=== PATIENT | female | born 1985 | race Caucasian/White ===

== ENCOUNTER 2017-11-01 08:39 | Inpatient (IN) | payer OTHER ==
[~2017-11-01] VITALS: Ht 162.6 cm; Wt 79.4 kg
[~2017-11-01 08:39] MED LIST: IBUPROFEN800 MG PO; PRENATAL1 TA2 PO; ZOFRAN4 M2 PO
--- NOTE | 2017-11-01 09:57 | History & Physical ---
General Information and HPI MD Statement: I have seen and personally examined RACHEL MCKEON and documented this H&P. The patient is a 32 year old female at [] weeks and [] days gestation who presented with a chief complaint of []. Source of Information: patient, old records Exam Limitations: no limitations History of Present Illness: The patient is a 32 year old at 41 weeks and 3 days gestation who presented with a chief complaint of IOL for PEDC. Pt c/o irreg ctx since 4 am. No LOF / vb / +FM. 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 Last TFT's wnl. 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 No Contractions: irreg Infant #1 - FHR Baseline: 120 Category: 1 Estimated Weight: 3800 Presentation: vtx Patient for Induction? Yes Alvarado Score Alvarado Score Response Value Cervix Position: posterior 0 Cervix Consistency: soft 2 Cervix Effacement: 30-50% 1 Cervix Dilation: 3-4 cm 2 Cervix Station: -2 1 Total 6 Physical Exam: nad cta rrr abd soft nt gravid ext nt tr b/l le ed Labs Blood Type & Rh: AB pos Antibody Screen: neg Hct/Hgb & Platelets #1: 12.4 / 39.2, 247 Hct/Hgb & Platelets #2: 11.1 / 35.5, 234 Rubella: imm VDRL #1: neg VDRL #2: neg HbsAg: neg HIV #1: neg HIV #2 neg 1 Hr P Group B Strep: neg Initial Ultrasound: 05/04/17 siup 15+4 Anatomy Ultrasound: 06/08/17 20+3 nl montse, post fundal plac Ultrasound for EFW: 09/29/17 36+5 5#12 Genetic Testing: cffdna wnl XY Last 24 Hrs of Labs/Gerson: Laboratory Tests 11/01/17 0910: CBC w Diff Pending, WBC Pending, RBC Pending, Hgb Pending, Hct Pending, MCV Pending, MCH Pending, MCHC Pending, RDW Pending, Plt Count Pending, MPV Pending, Urine Color Pending, Urine Clarity Pending, Urine pH Pending, Ur Specific [place] Pending, Urine Protein Pending, Urine Ketones Pending, Urine Nitrite Pending, Urine Bilirubin Pending, Urine Urobilinogen Pending, Ur Leukocyte Esterase Pending, Ur Microscopic Pending, Urine Hemoglobin Pending, Urine Glucose Pending Assessment/Plan Assessment/Plan: 32yo P2 @ 41+3 for PEDC IOL, GBS neg, and maternal status reassuring -Admit -pitocin -monitoring -ANSVD As Ranked By This Provider Problem List: 1. Core Measures Venous Thromboembolism VTE Risk Factors / No Mechanical VTE Prophylaxis d/t Early Ambulation No VTE Pharm Prophylaxis d/t LowRisk-No Interven Req'd Attending MD Review Statement Attending Statement Attending MD Statement: examined this patient, discussed with family, reviewed EMR data (avail), discussed w/nursing
[2017-11-01 11:30] LABS: ABSOLUTE BASOPHIL COUNT 0 /CUMM (0.0-0.2); ABSOLUTE EOSINOPHIL COUNT 0.1 /CUMM (0.0-0.7); ABSOLUTE LYMPH COUNT 1.5 /CUMM (1.2-3.4); ABSOLUTE MONOCYTE COUNT 0.5 /CUMM (0.10-0.60); BASOPHIL % 0.5 % (0.0-2.0); EOSINOPHIL % 1.2 % (0-5); HEMATOCRIT 36.1 % (37-47); MEAN CORPUSCULAR HGB 29.8 PG (27.0-31.0); MEAN CORPUSCULAR HGB CONC 33.7 G/DL (33.0-37.0); MEAN CORPUSCULAR VOLUME 88.3 FL (81.0-99.0); MEAN PLATELET VOLUME 7.4 FL (7.4-10.4); PLATELET COUNT 287 /CUMM (130-400); RBC DISTRIBUTION WIDTH 14.1 % (11.5-14.5); RED BLOOD CELL CT 4.09 /CUMM (4.20-5.40); WHITE BLOOD CELL COUNT 9.1 /CUMM (4.8-10.8)
--- NOTE | 2017-11-01 13:21 | PN- OBGYN ---
Surgical Brief Attending Note Brief Attending Note: pt comfortable w/ epidural afeb, v/ss fht 120s moderate variability +acc no dec toco q 2 - 3 pit@5mu sve 7/100/-1, arom clr a/p p2 @ 41+wks pedc iol, on pit, and maternal status reassuring cont current mgmt ansvd
--- NOTE | 2017-11-01 15:29 | Labor & Delivery Summary ---
Delivery Summary Vaginal Delivery: Vaginal: spontaneous Episiotomy/Lacerations: Type: 2nd deg Repair: 3-0 david Anesthesia: epidural Placenta: Placenta: spontanteous, normal, 3 vessel Anesthesia: block Cord PH Value: pending Baby's Weight: 3760 Apgars - 1 Min: 9 Apgars - 5 Min: 9 Additional Comments: Pt FD / +3 and pushing w/ epidural. Controlled of live male, apg 9/9, wt 8# 3. Head del from [place]Y. Spontaneous cry. Body delivered w/o difficulty to mom's chest. Mouth and nose bulb suctioned. Cord clamped and cut. 2nd deg lac repaired usual fashion 3-0 david. 3vc plac del after 35 min spont intact. Fundus contracted well. EBL 300cc. Pt tolerated well.
[2017-11-02 01:08] VITALS: BP 118/68
[2017-11-02 09:35] LABS: ABSOLUTE BASOPHIL COUNT 0 /CUMM (0.0-0.2); ABSOLUTE EOSINOPHIL COUNT 0.1 /CUMM (0.0-0.7); ABSOLUTE GRANULOCYTE CT 7.4 /CUMM (1.4-6.5); ABSOLUTE LYMPH COUNT 1.6 /CUMM (1.2-3.4); ABSOLUTE MONOCYTE COUNT 0.4 /CUMM (0.10-0.60); BASOPHIL % 0.4 % (0.0-2.0); EOSINOPHIL % 1.2 % (0-5); GRANULOCYTE % 77.2 % (42.2-75.2); HEMATOCRIT 34.9 % (37-47); MEAN CORPUSCULAR HGB 29.5 PG (27.0-31.0); MEAN CORPUSCULAR HGB CONC 33.3 G/DL (33.0-37.0); MEAN CORPUSCULAR VOLUME 88.6 FL (81.0-99.0); MEAN PLATELET VOLUME 7.6 FL (7.4-10.4); PLATELET COUNT 209 /CUMM (130-400); RBC DISTRIBUTION WIDTH 14.4 % (11.5-14.5); RED BLOOD CELL CT 3.94 /CUMM (4.20-5.40); WHITE BLOOD CELL COUNT 9.6 /CUMM (4.8-10.8)
--- NOTE | 2017-11-02 09:48 | PN- Post Delivery/GYN ---
Subjective Subjective: feeling well asking for early discharge Review of Systems Constitutional: Reports: no symptoms. Denies: chills, fever. EENTM: Denies: blurred vision, double vision, visual changes. Cardiovascular: Denies: chest pain, edema. Respiratory: Denies: cough, short of breath. Neurological/Psychological: Denies: anxiety, depressed. Objective Last 24 Hrs of Vital Signs/I&O vss Vital Signs Date Time Temp Pulse Resp B/P B/P Pulse O2 O2 Flow FiO2 Mean Ox Delivery Rate 11/02 0108 118/68 Physical Exam General Appearance Alert, Oriented X3, Cooperative, No Acute Distress Cardiovascular Regular Rate Lungs Clear to Auscultation Abdomen Soft, fundus firm Pelvic (FEMALE) lochia serosanganous Current Medications: Current Medications Sig/Cory Start time Last Medication Dose Route Stop Time Status Admin Acetaminophen 650 MG Q4P PRN 11/01 1515 AC PO Docusate Sodium 100 MG DAILY NEEDED PRN 11/01 1515 AC 11/01 PO 2251 Ibuprofen 800 MG Q6P PRN 11/01 1515 AC 11/02 PO 0628 Lactated Ringer's 1,000 ML Q8H 11/01 0845 DC 11/01 IV 1215 Multivitamins 1 TAB DAILY 11/01 1512 AC PO Oxytocin 20 UNITS Q5H 11/01 1515 DC 11/01 Lactated Ringer's 1,000 ML IV 11/01 2013 1420 Oxytocin 30 UNITS PER PROTOCL 11/01 0945 AC 11/01 Lactated Ringer's 500 ML IV 0943 Last 24 Hrs of Labs/Gerson: Laboratory Tests 11/02/17 0743: CBC w Diff Pending, WBC Pending, RBC Pending, Hgb Pending, Hct Pending, MCV Pending, MCH Pending, MCHC Pending, RDW Pending, Plt Count Pending, MPV Pending Microbiology 11/01 1220 URINE ROUT: Urine Culture - RES Assessment/Plan Assessment/Plan ppd #1 vss afebrile plan d/c home Problem List: 1. Attending MD Review Statement Attending Statement Attending MD Statement: examined this patient, discussed with family, discussed with nursing
[2017-11-02] MEDS ORDERED: IBUPROFEN800 M1 PO (09:49)
== END 2017-11-02 15:30 | DRG 775 ==
LOC: GNO 08:39
PROVIDERS: Obstetrics & Gynecology
PROC: 10E0XZZ Delivery of Products of Conception, External Approach (ICD-10-PCS; principal; 2017-11-01)
PROC: 0KQM0ZZ Repair Perineum Muscle, Open Approach (ICD-10-PCS; principal; 2017-11-01)
PROC: 3E033VJ Introduction of Other Hormone into Peripheral Vein, Percutaneous Approach (ICD-10-PCS; 2017-11-01)
DX: O48.0 Post-term pregnancy (principal); O70.1 Second degree perineal laceration during delivery; Z3A.41 41 weeks gestation of pregnancy; Z37.0 Single live birth
CPT/HCPCS: GNOS; 36415; 81001; 87086; J7120